=== PATIENT | male | born 1990 | race American Indian/Alaskan Native ===

== ENCOUNTER 2019-10-08 10:41 | Emergency (ER) | payer SELFPAY ==
[2019-10-08 12:01] VITALS: BP 130/77
[2019-10-08] MEDS ORDERED: ALBUTEROL 2.5 MG/3 ML NEBU IH ONE ×2 (12:01→14:17)
[2019-10-08] MEDS ORDERED: IPRATROPIUM 0.02% NEBU 2.5 ML IH ONE (12:01)
--- NOTE | 2019-10-08 12:02 | Event Note ---
ED Screening Note ED Screening Note: Patient is presenting with cough, chest congestion, wheezing that began a few days ago He denies any fever, nausea, vomiting, diarrhea, shortness of breath, chest pain, abdominal pain No recent travel, no known sick contacts [place] into contact with many people Past medical history of childhood asthma No allergies to medications Patient is a smoker and a drinker This initial assessment/diagnostic orders/clinical plan/treatment(s) is/are subject to change based on patients health status, clinical progression and re- assessment by fellow clinical providers in the ED. Further treatment and workup at subsequent clinical providers discretion. Patient/guardian urged not to elope from the ED as their condition may be serious if not clinically assessed and managed. Initial orders include: CXR neb tx steroid IM ACC eval
--- NOTE | 2019-10-08 12:35 | XRay Report ---
CHEST 2 VIEWS INDICATION: cough, wheezing. COMPARISON: None. FINDINGS: Support devices: None. Heart: Within normal limits. Lungs/Pleura: No acute air space or interstitial disease. No significant pleural effusion. IMPRESSION: No acute findings. Signer Name: Nelson Rodriguez MD Signed: 10/08/2019 12:31 PM Workstation Name: [id number]
--- NOTE | 2019-10-08 13:00 | Emergency Department Report ---
Minor Respiratory - [facility] Chief Complaint: Upper Respiratory Infection Stated Complaint: WEAK/COUGH/CONGESTION Time Seen by Provider: 10/08/19 11:59 Duration: 4 Days Severity: mild Minor Respiratory: Yes Able to Tolerate Fluids, Yes Cough, Yes Sick Contacts, No Rhinorrhea, No Sore Throat, No Chest Pain, No Shortness of Breath, No Fever Other History: 28-year-old -[place] male presents to the emergency room complaining of chest congestion and wheezing x3 to 4 days. Patient states he has no fever chills still able to taste and smell. [place] Patient reports he has a childhood history of asthma. ED Review of Systems ROS: Stated complaint: WEAK/COUGH/CONGESTION Other details as noted in HPI ED Past Medical Hx - Past Medical History Previous Medical History?: No - Surgical History Past Surgical History?: No - Social History Smoking Status: Current Every Day Smoker Substance Use Type: Alcohol - Medications Home Medications: Home Medications Medication Instructions Recorded Confirmed Last Taken Type Albuterol Sulfate [Proventil Hfa] 2 puff IH QID PRN #1 hfa.aer.ad 10/08/19 Unknown Rx predniSONE [Deltasone] 40 mg PO QDAY 5 Days #10 tablet 10/08/19 Unknown Rx Minor Respiratory Exam - Exam General: Vital signs noted. No distress. Alert and acting appropriately. HEENT: Yes Moist Mucous Membranes, No Pharyngeal Erythema, No Pharyngeal Exudates, No Rhinorrhea, No Conjuctival Injection, No Frontal Tenderness, No Maxillary Tenderness Neck: Yes Supple, No Adenopathy Lungs: Yes Wheezes, Yes Cough Heart: Yes Regular, No Murmur Abdomen: Yes Normal Bowel Sounds, No Tenderness, No Peritoneal Signs Skin: No Rash, No Edema Neurologic: Alert and oriented, no deficits. Musculoskeletal: Unremarkable. ED Course Vital Signs 10/08/19 11:59 Temperature 97.8 F Pulse Rate 75 Respiratory 18 Rate Blood Pressure 130/77 O2 Sat by Pulse 99 Oximetry - Reevaluation(s) Reevaluation #1: 10/08/19 14:16 Reassess patient is still has some wheezing inspiratory and expiratory on the right middle and lower lung will initiate another 5 mill grams of albuterol inhalation. ED Medical Decision Making - Radiology Data Radiology results: report reviewed Referring Physician:MIRIAM HAYSPatient Name:ANABELLA COURTNEYPatient ID:[id number] of :[id number]:MaleAccession:[id number] Date:[id number] Status:Finalized Findings [facility] [address] [place] [address] XRay Report Signed Patient: ANABELLA COURTNEY MR#: [id number] : 1990 Acct:[id number] Age/Sex: 28 / M ADM Date: 10/08/19 Loc: ED Attending Dr: Ordering Physician: SABRA GUTIERREZ Date of Service: 10/08/19 Procedure(s): XR chest routine 2V Accession Number(s): [id number] cc: SABRA GUTIERREZ Fluoro Time In Minutes: CHEST 2 VIEWS INDICATION: cough, wheezing. COMPARISON: None. FINDINGS: Support devices: None. Heart: Within normal limits. Lungs/Pleura: No acute air space or interstitial disease. No significant pleural effusion. IMPRESSION: No acute findings. Signer Name: Nelson Rodriguez MD Signed: 10/08/2019 12:31 PM Workstation Name: [id number] Transcribed By: ES Dictated By: Nelson Rodriguez MD Electronically Authenticated By: Nelson Rodriguez MD Signed Date/Time: 10/08/19 1231 DD/ 1230 TD/TT: - Medical Decision Making 28-year-old -[place] male presents to the emergency room complaining of chest congestion and wheezing x3 to 4 days. Patient states he has no fever chills still able to taste and smell. [place] Patient reports he has a childhood history of asthma. Chest x-ray is negative, patient's been given albuterol and Atrovent nebulizer treatment. Ordered dexamethasone p.o. 4 mg. Patient will be discharged home on albuterol inhaler and prednisone. Patient is to follow-up with her primary care provider. Critical care attestation.: If time is entered above; I have spent that time in minutes in the direct care of this critically ill patient, excluding procedure time. ED Disposition Clinical Impression: Wheezing on both sides of chest, Cough Disposition: DC-01 TO HOME OR SELFCARE Is pt being admited?: No Does the pt Need Aspirin: No Condition: Stable Instructions: Reactive Airways Disease (ED) Additional Instructions: Complete prednisone as prescribed. Use inhaler as needed. Follow-up with a primary care provider. Prescriptions: predniSONE [Deltasone] 40 mg PO QDAY 5 Days #10 tablet Albuterol Sulfate [Proventil Hfa] 2 puff IH QID PRN #1 hfa.aer.ad PRN Reason: Wheezing Referrals: GISEL WARNER MD [Primary Care Provider] - 3-5 Days Forms: Work/School Release Form(ED)
[2019-10-08] MEDS ORDERED: DEXAMETHASONE 4 MG TAB PO ONE (13:24)
== END 2019-10-08 15:58 | disposition home or self-care (01) ==
LOC: ED 10:41
DX: R06.2 Wheezing (principal); R05 Cough; F17.200 Nicotine dependence, unspecified, uncomplicated; Z79.899 Other long term (current) drug therapy
CPT/HCPCS: 71046; 94640; 99283; J8540

== ENCOUNTER 2020-06-06 10:32 | Emergency (ER) | payer SELFPAY ==
[2020-06-06 10:40] VITALS: BP 153/97
--- NOTE | 2020-06-06 11:56 | Emergency Department Report ---
ED General Adult HPI - General Chief complaint: Allergic Reaction Stated complaint: POLLEN ALLERGIES Time Seen by Provider: 06/06/20 11:50 Source: patient Mode of arrival: Ambulatory Limitations: No Limitations - History of Present Illness Initial comments: 29-year-old male patient presents to emergency department with complaints of sneezing and itchy/watery eyes for 1 week. Patient works outside and attributes his symptoms to pollen exposure. He has been taking Benadryl for symptoms with limited relief. He does not have a primary care provider. No known sick contacts. Denies fever, chills, cough, sore throat, wheezing, shortness of breath, myalgias. Denies other complaints at this time. - Related Data Previous Rx's Medication Instructions Recorded Last Taken Type Albuterol Sulfate [Proventil Hfa] 2 puff IH QID PRN #1 hfa.aer.ad 10/08/19 Unknown Rx predniSONE [Deltasone] 40 mg PO QDAY 5 Days #10 tablet 10/08/19 Unknown Rx Loratadine [Claritin] 10 mg PO ONCE #10 tablet 06/06/20 Unknown Rx Allergies Allergy/AdvReac Type Severity Reaction Status Date / Time No Known Allergies Allergy Unverified 10/08/19 10:49 ED Review of Systems ROS: Stated complaint: POLLEN ALLERGIES Other details as noted in HPI Other: GENERAL: Negative for fever, chills, weight change, anorexia, fatigue. ENT: Positive for sneezing and itchy watery eyes. CARDIOVASCULAR: Negative for chest pain, palpitations, lower extremity swelling. PULMONARY: Negative for cough, dyspnea, wheezing, orthopnea, cyanosis. GASTROINTESTINAL: Negative for abdominal pain, nausea, vomiting, diarrhea, constipation. MUSCULOSKELETAL: Negative for joint pain, joint swelling, myalgias, back pain, neck pain. NEUROLOGICAL: Negative for headache, seizure, syncope, paresthesias, weakness. INTEGUMENTARY: Negative for erythema, rash, diaphoresis, laceration, ecchymosis. HEMATOLOGICAL: Negative for hemoptysis, hematemesis, hematochezia, hematuria. PSYCHIATRIC: Negative for hallucinations, suicidal ideation, homicidal ideation, anxiety, depression. ED Past Medical Hx - Past Medical History Previous Medical History?: No - Surgical History Past Surgical History?: No - Social History Smoking Status: Current Every Day Smoker Substance Use Type: None - Medications Home Medications: Home Medications Medication Instructions Recorded Confirmed Last Taken Type Albuterol Sulfate [Proventil Hfa] 2 puff IH QID PRN #1 hfa.aer.ad 10/08/19 Unknown Rx predniSONE [Deltasone] 40 mg PO QDAY 5 Days #10 tablet 10/08/19 Unknown Rx Loratadine [Claritin] 10 mg PO ONCE #10 tablet 06/06/20 Unknown Rx ED Physical Exam - General Limitations: No Limitations - Other Other exam information: General: Awake, appropriately interactive, no acute distress. Neck: Supple. Full range of motion intact. Cardiovascular: Normal peripheral perfusion. Pulmonary: No respiratory distress. Patient is speaking normally without use of accessory muscles. Skin: No apparent rashes or lesions. Neurological: No facial asymmetry. Speech is clear. Follows commands. Patient is alert and oriented. Musculoskeletal: Moves all four extremities spontaneously with normal range of motion. Psych: Cooperative. Appropriate mood and affect. ED Course Vital Signs 06/06/20 10:36 Temperature 97.9 F Pulse Rate 84 Respiratory 16 Rate Blood Pressure 153/97 O2 Sat by Pulse 100 Oximetry ED Medical Decision Making - Medical Decision Making Differential diagnosis including but not limited to: allergic rhinitis, acute nasopharyngitis Patient presents to emergency department with complaints of sneezing and itchy, watery eyes. He attributes his symptoms to increased pollen. He has not taken any [id number] medication. He is afebrile with normal vital signs. Patient will be discharged home with prescription for antihistamines. Emphasized the importance of establishing care with a local primary care provider for long-term management of his allergies. Patient expressed understanding and is agreeable to plan of care. Strict return precautions provided. Repeat exam is unremarkable and benign. History, exam, diagnostic testing, and current condition do not suggest worrisome pathology to warrant further testing, continued ED treatment, admission, or surgical evaluation at this point. Given the low probability of a significant medical illness, it would be more likely to result in harm than benefit to perform further testing at this stage. Discussed findings, presumptive diagnosis, need for follow-up and specific signs/symptoms that should prompt immediate return to the emergency department. Instructions were explained in detail to the patient in addition to giving written discharge information. Patient expressed understanding and was given the opportunity to ask questions, all of which were satisfactorily answered prior to discharge home. BILLING/CODING: Please note this patient encounter does not represent a certified medical emergency. Critical care attestation.: If time is entered above; I have spent that time in minutes in the direct care of this critically ill patient, excluding procedure time. ED Disposition Clinical Impression: Seasonal allergies Disposition: DC-01 TO HOME OR SELFCARE Is pt being admited?: No Does the pt Need Aspirin: No Condition: Stable Instructions: Allergic Rhinitis, Adult Additional Instructions: Take Claritin as directed. You will need to establish care with a primary care provider in order to manage this condition. Please see referral information below. Return to the emergency department immediately for new or worsening symptoms. Prescriptions: Loratadine [Claritin] 10 mg PO ONCE #10 tablet Referrals: LEVON LAY MD [Staff Physician] - 3-5 Days Time of Disposition: 11:56
== END 2020-06-06 12:41 | disposition home or self-care (01) ==
LOC: ED 10:32
DX: J30.2 Other seasonal allergic rhinitis (principal); F17.200 Nicotine dependence, unspecified, uncomplicated; Z79.899 Other long term (current) drug therapy
CPT/HCPCS: 99282